=== PATIENT | female | born 2005 | race Caucasian/White ===

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

== ENCOUNTER 2024-01-25 08:40 | Outpatient (CLI) | payer MEDICAID, SELFPAY ==
[2022-11-02 15:48] VITALS: BP 113/69; BMI 32.8
--- NOTE | 2024-01-25 08:46 | MR_ITS ---
WS: [id number] MRI BRAIN WITH AND WITHOUT CONTRAST HISTORY: DEMYELINATING DZ COMPARISON: Noncontrast head CT 10/06/2019 TECHNIQUE: Multiplanar imaging performed through the brain with MultiHance 15 ml's IV. No acute infarcts are seen. Hardy-white matter differentiation is well preserved. There is a focal cys tic area noted within the superior hippocampus measuring 6 mm. This follows fluid on all sequences an d does not enhance. Very slight volume loss of the hippocampal formation. No additional abnormalities . No susceptibility artifacts or prior lacunar infarcts. Ventricles and extra-axial spaces are normal. Clivus and pituitary gland are normal. Visualized posterior fossa and brainstem are also normal. Postcontrast images are negative for masses or vascular malformations. Dural venous sinuses are normal. Paranasal sinuses: Well aerated with no significant disease. Mastoid air cells: Normal. Calvarium and scalp: Normal. MR/MR head wo/w con [id number] IMPRESSION: 1. No evidence for acute hemorrhage or prior infarct. 2. There is a single 6 mm focus in the superior RIGHT hippocampal formation fo llowing CSF signal on all sequences and does not enhance. 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 Mild mesial temporal sclerosis w ithin the differential. 3. Otherwise negative. 4. No demyelinating white matter lesions.
--- NOTE | 2024-01-25 08:46 | MR_ITS ---
WS: [id number] MRI LUMBAR SPINE WITH AND WITHOUT CONTRAST HISTORY: DEMYELINATING DZ COMPARISON: None available. TECHNIQUE: Sagittal and axial multisequence imaging is submitted. MultiHance 15 mL postcontrast. Normal lumbar alignment with no compression fractures or marrow edema. Disc spaces and vertebral body heights are well-preserved. Conus terminates normally at L1-2 disc level. No signal abnormality involving the conus. No enhancement. No discitis or osteomyelitis. L1-L2: Normal. L2-L3: Normal. L3-L4: Mild annular disc bulging with mild ligamentum flavum and facet arthritis. There is mild encro achment upon the traversing L4 nerve roots. Mild subarticular recess stenosis. Small amount of fluid in the facet joints. L4-L5: Mild annular disc bulge with a central disc protrusion. There is very slight disc contact on t he LEFT traversing L5 nerve root but no displacement. Mild LEFT foraminal narrowing. L5-S1: Mild annular disc bulging. No stenosis. Mild facet arthritis. Paravertebral soft tissues are normal. MR/MR lumbar spine wo/w con [id number] IMPRESSION: 1. No enhancing masses. No discitis or osteomyelitis. 2. Mild annular disc bulging at L3-4 with disc encroachment upon the traversin g L4 nerve roots. Minimal subarticular recess stenosis. 3. Mild LEFT foraminal narrowing at L4-5.
--- NOTE | 2024-01-25 08:46 | MR_ITS ---
WS: [id number] MRI CERVICAL SPINE with and without contrast HISTORY: DEMYELINATING DZ COMPARISON: None available. Technique: Multiplanar, multisequence noncontrast imaging of the cervical spine. Postcontrast imaging 15 mL MultiHance. Normal cervical alignment with no compression fracture or significant disc space narrowing. Signal within the cervical cord is normal. Visualized posterior fossa is unremarkable. Craniocervical junction, C1 and C2 relationship, odontoid process and soft tissues are normal. No signal abnormality or demyelination. No enhancing cord lesions. No atrophy or enlargement. C2-C3: Normal. C3-C4: Normal. C4-C5: Mild annular disc bulging with small foraminal osteophytes. Mild foraminal narrowing. C5-C6: Normal. C6-C7: Osteophytic ridging and LEFT foraminal osteophyte. Mild LEFT foraminal stenosis. C7-T1: Normal. Paraspinal soft tissue are normal. MR/MR cervical spine wo/w [id number] IMPRESSION: 1. No cervical cord demyelinating lesions. 2. No cervical cord atrophy or enlargement. 3. Mild foraminal narrowing at C4-5 and on the LEFT at C6-7 due to osteophyte disease.
--- NOTE | 2024-01-25 08:46 | MR_ITS ---
WS: [id number] MRI THORACIC SPINE with and without contrast HISTORY: DEMYELINATING DZ COMPARISON: None available. TECHNIQUE: Multiplanar sequences are performed in sagittal and axial planes. MultiHance 15 mL IV. Study is compromised by overall breathing motion artifact throughout the entire exam. Thoracic vertebral bodies appear normally aligned. Disc spaces and vertebral body heights are normal. Normal signal within the cord. No atrophy or enlargement. No enhancement. Normal tapering at the tho racolumbar junction. Small RIGHT paracentral disc protrusion at T4-5. No additional disc protrusions or significant stenos is is identified. MR/MR thoracic spine wo/w [id number] IMPRESSION: 1. No signal abnormalities within the thoracic cord. No areas of demyelination . 2. Small RIGHT paracentral disc protrusion at T4-5.
== END 2024-01-25 08:41 | disposition home or self-care (01) ==
PROVIDERS: PCP Family Medicine; Visit Provider Family Medicine
DX: G37.9 Demyelinating disease of central nervous system, unspecified (principal); G93.89 Other specified disorders of brain; M25.78 Osteophyte, vertebrae
CPT/HCPCS: 70553; 72156; 72157; 72158; A9577